=== PATIENT | female | born 1990 | race African-American/Black ===

== ENCOUNTER 2017-08-26 00:09 | Emergency (ER) | payer OTHER ==
[~2017-08-26] VITALS: Ht 170.2 cm; Wt 103.5 kg
[2017-08-26] MEDS ORDERED: ZANTAC150 MG PO (00:39)
[2017-08-26 00:55] LABS: HEMATOCRIT 34.1 % (36.0-46.0); HEMOGLOBIN 11.5 G/DL (11.9-15.5); MCH 29.2 PG (29.0-34.0); MCHC 33.7 G/DL (30.0-36.0); MCV 86.5 FL (83-99); PLATELET COUNT 214 K/uL (156-360); RBC DIS.WIDTH-CV 12.9 % (11.8-14.6); RED BLOOD COUNT 3.94 M/uL (3.80-5.20); WHITE BLOOD COUNT 7.1 K/uL (4.1-10.2)
[2017-08-26 01:06] LABS: ALBUMIN 3.9 g/dL (3.2-4.8); CHLORIDE 107 mEq/L (99-109); POTASSIUM 3.6 mEq/L (3.7-5.4); SODIUM 141 mEq/L (136-147)
[2017-08-26 01:08] LABS: GLUCOSE 106 mg/dL (70-99); TOTAL PROTEIN 7.5 g/dL (6.4-8.3)
[2017-08-26 01:10] LABS: TOTAL BILIRUBIN 0.3 mg/dL (0.0-1.0)
[2017-08-26 01:12] LABS: ALKALINE PHOSPHATASE 89 IU/L (3-129); CREATININE 0.7 mg/dL (0.6-1.3); GFR ESTIMATE (CALCULATED) > 59 mL/min/
[2017-08-26 01:13] LABS: UREA NITROGEN (BUN) 12 mg/dL (9-23)
[2017-08-26 01:14] LABS: AST (GOT) 24 IU/L (2-34)
[2017-08-26 01:15] LABS: ALT (GPT) 26 IU/L (3-49)
[2017-08-26 01:21] LABS: QUANTITATIVE HCG < 4.0 MIU/ML
[2017-08-26 02:05] VITALS: BP 134/77
== END 2017-08-26 02:06 | disposition home or self-care (01) ==
LOC: EME 00:09
PROVIDERS: Emergency Medicine Emergency Medical Services
DX: K29.70 Gastritis, unspecified, without bleeding (principal)
CPT/HCPCS: 80053; 84702; 85027; 99281; 99284

== ENCOUNTER 2017-10-10 07:32 | Emergency (ER) | payer OTHER ==
[~2017-10-10] VITALS: Ht 172.7 cm; Wt 103.5 kg
[~2017-10-10 07:32] MED LIST: ZANTAC150 MG PO
[2017-10-10] MEDS ORDERED: FLEXERIL10 MG PO (10:25)
[2017-10-10] MEDS ORDERED: NAPROSYN500 MG PO (10:25)
[2017-10-10 10:31] VITALS: BP 125/89
== END 2017-10-10 10:33 | disposition home or self-care (01) ==
LOC: EME 07:32
DX: M79.661 Pain in right lower leg (principal); R20.2 Paresthesia of skin; M79.1 Myalgia; E78.5 Hyperlipidemia, unspecified; F32.9 Major depressive disorder, single episode, unspecified; F41.9 Anxiety disorder, unspecified
CPT/HCPCS: 73590; 93971; 99281; 99283